=== PATIENT | male | born 1975 | race Caucasian/White ===

== ENCOUNTER 2017-03-01 19:21 | Emergency (ER) | payer OTHER ==
[2017-03-01] MEDS ORDERED: NS 0.9% 1000 ML* 2,000 ML IV ONE (23:27)
[2017-03-02 00:02] LABS: Hematocrit 44 % (42-52); Hemoglobin 15.8 g/dl (14.0-18.0); Mean Corpuscular HGB Conc 36 g/dl (31-36); Mean Corpuscular Hemoglobin 34 pg (27-31); Mean Corpuscular Volume 96 fL (80-94); Mean Platelet Volume 8 um3 (7.4-10.4); Red Blood Count 4.61 10^6/ul (4.0-5.4); Red Cell Distribution Width 13 % (10.5-15); White Blood Count 10.9 10^3/ul (3.5-10.8)
--- NOTE | 2017-03-02 00:04 | ED ---
Skin Complaint - HPI Summary HPI Summary: 42 male presents to ED with complaints of redness, swelling, warmth and pain to left inner leg that appeared on Monday and has been worsening/spreading since. Patient has not taken any medications. States he felt a lump. Denies fever/ chills. Admits to pain, aching. No nausea/vomiting, chest pain or difficulty breathing. No risk factors for DVT, other than use of cigars. no recent travel, surgery, injury/trauma or prolonged bed rest. PMHx included DM type II. No other medical history. No other complaints at this time. Able to bear weight and walk. Denies numbness/tingling and drainage. Patient currently only takes metformin for his diabetes. NO MRSA histor. - History of Current Complaint Chief Complaint: EDExtremityLower Time Seen by Provider: 03/01/17 21:38 Stated Complaint: BUMP ON LT LEG Hx Obtained From: Patient Onset/Duration: Started Days Ago, Still Present, Worse Since Skin Exposure Onset/Duration: Days Ago Timing: Constant Onset Severity: Moderate Current Severity: Moderate Pain Intensity: 5 Pain Scale Used: 0-10 Numeric Skin Location: Leg - left inner thigh/knee Character: Swelling, Pain, Redness Aggravating Symptom(s): Nothing Alleviating Symptom(s): Nothing Associated Signs & Symptoms: Rash Related History: Diabetes - Allergy/Home Medications Allergies/Adverse Reactions: Allergies Allergy/AdvReac Type Severity Reaction Status Date / Time No Known Allergies Allergy Verified 05/20/14 06:18 PMH/Surg Hx/FS Hx/Imm Hx Endocrine/Hematology History: Denies: Hx Diabetes Cardiovascular History: Denies: Hx Hypertension, Hx Pacemaker/ICD Respiratory History: Reports: Other Respiratory Problems/Disorders - INSPIRATORY WHEEZE UPPER RIGHT LOBE History: Denies: Hx Renal Disease Musculoskeletal History: Reports: Other Musculoskeletal History - LEFT KNEE ACL RECONSTRUCTION Sensory History: Reports: Hx Contacts or Glasses - GLASSES Denies: Hx Hearing Aid Opthamlomology History: Reports: Hx Contacts or Glasses - GLASSES Psychiatric History: Denies: Hx Panic Disorder - Surgical History Surgery Procedure, Year, and Place: left knee ~5 YEARS AGO ACL REPAIR Hx Anesthesia Reactions: No - Immunization History Immunizations Up to Date: Yes Infectious Disease History: No Infectious Disease History: Denies: Traveled Outside the [place] in Last 30 Days - Family History Known Family History: Positive: None - Social History Alcohol Use: Daily Alcohol Amount: ONE BEER DAILY Substance Use Type: Reports: None Smoking Status (MU): Former Smoker Amount Used/How Often: 1/2 PPD Length of Time of Smoking/Using Tobacco: 18 YEARS Have You Smoked in the Last Year: Yes Review of Systems Constitutional: Negative Cardiovascular: Negative Respiratory: Negative Genitourinary: Negative Musculoskeletal: Negative Positive: Rash - pain, red and warmth of left lower leg, inner thigh Neurological: Negative All Other Systems Reviewed And Are Negative: Yes Physical Exam Triage Information Reviewed: Yes Vital Signs On Initial Exam: Initial Vitals Temp Pulse Resp BP Pulse Ox 98.3 F 82 20 146/92 99 03/01/17 19:38 03/01/17 19:38 03/01/17 19:38 03/01/17 19:38 03/01/17 19:38 Vital Signs Reviewed: Yes Appearance: Positive: Well-Appearing, No Pain Distress, Well-Nourished Skin: Positive: Warm, Skin Color Reflects Adequate Perfusion, Dry, Erythema @ - non blanchable resmebling cellulitis or DVT of left inner thigh/knee warm to touch, not raised, no abscess appreciated. firm to touch, no discharge. no streaking.. Negative: Cold, Cyanosis @, Mass @ Head/Face: Positive: Normal Head/Face Inspection Eyes: Positive: Conjunctiva Clear ENT: Positive: Hearing grossly normal Neck: Positive: Supple, Nontender, No Lymphadenopathy Respiratory/Lung Sounds: Positive: Clear to Auscultation, Breath Sounds Present. Negative: Rales, Rhonchi, Wheezes Cardiovascular: Positive: Normal, RRR, Pulses are Symmetrical in both Upper and Lower Extremities - 2+ pedal. Negative: Murmur, Rub Abdomen Description: Positive: Nontender, Soft Bowel Sounds: Positive: Present Musculoskeletal: Positive: Normal, Strength/ROM Intact, Pain @ - on palpation of rash left LE Neurological: Positive: Normal, Sensory/Motor Intact - sensation intact and normal, Alert, Oriented to Person Place, Time, NV Bundle Intact Distally, Normal Gait Psychiatric: Positive: Affect/Mood Appropriate - [place] Coma Scale Coma Scale Total: 15 Diagnostics - Vital Signs Vital Signs Temp Pulse Resp BP Pulse Ox 03/01/17 23:50 69 18 122/63 99 03/01/17 21:26 98.0 F 77 18 121/77 97 03/01/17 19:38 98.3 F 82 20 146/92 99 - Laboratory Result Diagrams: 03/01/17 23:53 03/01/17 23:53 Lab Statement: Any lab studies that have been ordered have been reviewed, and results considered in the medical decision making process. - Ultrasound No standard instances Ultrasound Interpretation: Positive (See Comments) - occlusive thrombus in the left greater saphenous vein Ultrasound Interpretation Completed By: Radiologist Re-Evaluation - Re-Evaluation First Eval Re-Evaluation Time: 00:46 Change: Unchanged - doing ok, updated on imaging results and educated on treatment Course/Dx - Course Course Of Treatment: basic labs and both venous/soft tissue ultrasound obtained. given normal saline. appears to be suffering from occlusive thrombus of greater saphenous vein per US results. Spoke with imaging pony rougher about results at12:37am. patient does have type II no history of MRSA. Will be given xarelto. no contraindications. Educated on side effects and contraindications of xarelto. educated and aware of worsening signs and symptoms to watch out for such as PE, to seek medical attention promptly. follow up with pcp. - Differential Diagnoses - Skin Complaint Differential Diagnoses: Cellulitis, Contact Dermatitis, MRSA, Urticaria, Other - DVT - Diagnoses Provider Diagnoses: Thrombosis of left saphenous vein Discharge - Discharge Plan Condition: Stable Disposition: HOME Patient Education Materials: Deep Venous Thrombosis (ED), Rivaroxaban (By mouth ), Safe Use of Anticoagulants (ED), Blood Thinners (ED) Referrals: Shira Luis, JEAN PIERRE [Primary Care Provider] - Additional Instructions: Take prescribed medication as directed. Do not take NSAIDs, (ibuprofen/Advil, Meloxicam or Aleve) while taking this medication. You may bleed and bruise much easier. Follow up with PCP. If you develop worsening signs and symptoms as we discussed such as chest pain or difficulty breathing please seek medical attention immediately. Ambulate and avoid prolonged bed rest.
[2017-03-02 00:18] LABS: Albumin 3.8 g/dL (3.2-5.2); BUN/Creatinine Ratio 12.6 (8-20); Calcium 9.4 mg/dL (8.6-10.3); EGFR African American 111.3 (>60); EGFR Non-African American 86.5 (>60); Potassium 4.6 mmol/L (3.5-5.0); Total Bilirubin 0.9 mg/dL (0.2-1.0); Total Protein 6.8 g/dL (6.4-8.9)
[2017-03-02] MEDS ORDERED: Ketorolac INJ* 30 MG/ML 1 ML VIAL IV PUSH ONE (00:27)
[2017-03-02] MEDS ORDERED: Rivaroxaban TAB(*) 15 MG PO ONE (00:44)
[2017-03-02 01:03] VITALS: BP 128/68
--- NOTE | 2017-03-02 07:36 | RAD ---
INDICATION: Left lower extremity swelling. COMPARISON: There are no prior studies available for comparison. TECHNIQUE: Multiple real-time, color flow and Doppler tracings of the left lower extremity were obtained. FINDINGS: The common femoral, femoral, profunda femoral and popliteal veins all demonstrate normal compressibility, augmentation with compression and phasic response with respiration. The posterior tibial and peroneal veins demonstrate normal compressibility and augmentation with compression. There is occlusive thrombus in the greater saphenous vein from the mid thigh through the proximal to mid calf. IMPRESSION: OCCLUSIVE SUPERFICIAL VENOUS THROMBUS WITHIN THE LEFT GREATER SAPHENOUS VEIN.
== END 2017-03-02 01:05 | disposition home or self-care (01) ==
LOC: ED 19:21
DX: I82.812 Embolism and thrombosis of superficial veins of left lower extremity (principal); E11.9 Type 2 diabetes mellitus without complications; Z87.891 Personal history of nicotine dependence
CPT/HCPCS: 36415; 80053; 85025; 96374; 99283

== ENCOUNTER 2018-02-21 02:48 | Emergency (ER) | payer OTHER ==
[2018-02-21] MEDS ORDERED: Ketorolac INJ* 60 MG/2 ML VIAL IM ONE (03:00)
--- NOTE | 2018-02-21 03:03 | ED ---
Throat Pain/Nasal Congestion - HPI Summary HPI Summary: This patient is a 43 year old M presenting to [facility] with a chief complaint of a broken right bottom tooth since earlier today. The patient rates the pain 8/10 in severity. - History of Current Complaint Chief Complaint: EDDentalPain Time Seen by Provider: 02/21/18 02:52 Hx Obtained From: Patient Onset/Duration: Sudden Onset - At work earlier today, Still Present Severity: Severe - Allergies/Home Medications Allergies/Adverse Reactions: Allergies Allergy/AdvReac Type Severity Reaction Status Date / Time No Known Allergies Allergy Verified 02/21/18 02:49 Home Medications: Home Medications Aspirin 81 mg PO DAILY 02/21/18 [History Confirmed 02/21/18] Metformin HCl 500 mg PO BID 02/21/18 [History Confirmed 02/21/18] Pravastatin (NF) [Pravachol (NF)] 10 mg PO DAILY 02/21/18 [History Confirmed ] PMH/Surg Hx/FS Hx/Imm Hx Endocrine/Hematology History: Denies: Hx Diabetes Cardiovascular History: Denies: Hx Hypertension, Hx Pacemaker/ICD Respiratory History: Reports: Other Respiratory Problems/Disorders - INSPIRATORY WHEEZE UPPER RIGHT LOBE History: Denies: Hx Renal Disease Musculoskeletal History: Reports: Other Musculoskeletal History - LEFT KNEE ACL RECONSTRUCTION Sensory History: Reports: Hx Contacts or Glasses - GLASSES Denies: Hx Hearing Aid Opthamlomology History: Reports: Hx Contacts or Glasses - GLASSES Psychiatric History: Denies: Hx Panic Disorder - Surgical History Surgery Procedure, Year, and Place: left knee ~5 YEARS AGO ACL REPAIR Hx Anesthesia Reactions: No Infectious Disease History: No Infectious Disease History: Denies: Traveled Outside the [place] in Last 30 Days - Family History Known Family History: Positive: Hypertension, Other - Cancer - Social History Occupation: Employed Full-time - [employer] Alcohol Use: Daily Alcohol Amount: ONE BEER DAILY Substance Use Type: Reports: None Smoking Status (MU): Former Smoker Amount Used/How Often: 1/2 PPD Length of Time of Smoking/Using Tobacco: 18 YEARS Have You Smoked in the Last Year: Yes Review of Systems Negative: Fever Positive: Dental Pain - R bottom tooth All Other Systems Reviewed And Are Negative: Yes Physical Exam - Summary Physical Exam Summary: VITAL SIGNS: Reviewed. GENERAL: Patient is a well-developed and nourished MALE who is lying comfortable in the stretcher. Patient is not in any acute respiratory distress. HEAD AND FACE: No signs of trauma. No ecchymosis, hematomas or skull depressions. No sinus tenderness. EYES: PERRLA, EOMI x 2, No injected conjunctiva, no nystagmus. EARS: Hearing grossly intact. Ear canals and tympanic membranes are within normal limits. MOUTH: Oropharynx within normal limits. NECK: Supple, trachea is midline, no adenopathy, no JVD, no carotid bruit, no c- spine tenderness, neck with full ROM. CHEST: Symmetric, no tenderness at palpation LUNGS: Clear to auscultation bilaterally. No wheezing or crackles. CVS: Regular rate and rhythm, S1 and S2 present, no murmurs or gallops appreciated. ABDOMEN: Soft, non-tender. No signs of distention. No rebound no guarding, and no masses palpated. Bowel sounds are normal. EXTREMITIES: FROM in all major joints, no edema, no cyanosis or clubbing. NEURO: Alert and oriented x 3. No acute neurological deficits. Speech is normal and follows commands. SKIN: Dry and warm Triage Information Reviewed: Yes Vital Signs On Initial Exam: Initial Vitals Temp Pulse Resp BP Pulse Ox 97.9 F 86 20 169/98 96 02/21/18 02:49 02/21/18 02:49 02/21/18 02:49 02/21/18 02:49 02/21/18 02:49 Vital Signs Reviewed: Yes Diagnostics - Vital Signs Vital Signs Temp Pulse Resp BP Pulse Ox 02/21/18 02:49 97.9 F 86 20 169/98 96 - Laboratory Lab Statement: Any lab studies that have been ordered have been reviewed, and results considered in the medical decision making process. EENT Course/Dx - Course Assessment/Plan: This patient is a 43 year old M presenting to [facility] with a chief complaint of a broken right bottom tooth since earlier today. Physical exam was normal. Patient will be discharged home with painkillers and instructed to follow up with a dentist tomorrow morning. - Diagnoses Provider Diagnoses: Toothache Discharge - Sign-Out/Discharge Documenting (check all that apply): Patient Departure - D/C - Discharge Plan Condition: Stable Disposition: HOME Patient Education Materials: Toothache (ED) Referrals: Shira Luis NP [Primary Care Provider] - 1 Day Additional Instructions: RETURN TO THE EMERGENCY DEPARTMENT FOR CHANGING OR WORSENING SYMPTOMS. FOLLOW UP WITH PCP IN 1-2 DAYS. - Attestation Statements Document Initiated by Scribe: Yes Documenting Scribe: José Miguel Maki Provider For Whom Scribe is Documenting (Include Credential): Dmitri Byers MD Scribe Attestation: José Miguel Georges, scribed for Dmitri Byers MD on 02/21/18 at 0307.
[2018-02-21 03:45] VITALS: BP 169/95
== END 2018-02-21 03:44 | disposition home or self-care (01) ==
LOC: ED 02:48
DX: K08.89 Other specified disorders of teeth and supporting structures (principal); K03.81 Cracked tooth; Z79.82 Long term (current) use of aspirin; Z87.891 Personal history of nicotine dependence
CPT/HCPCS: 96372; 99282; J1885

== ENCOUNTER 2019-01-08 17:36 | Emergency (ER) | payer OTHER ==
[2019-01-08 17:44] VITALS: BP 156/98
--- NOTE | 2019-01-08 17:47 | UC ---
Throat Pain/Nasal Dewayne HPI - HPI Summary HPI Summary: 43 yo male presents with sore throat since last night. He tells me that last night he developed a sore throat that has worsened in pain today and he has a mild headache. Hurts to swallow, but he is able to eat, drink, and tolerate po well. He has not taken anything OTC for his symptoms. Denies fever, chills, sinus symptoms, cough, rash, abdominal pain, n/v. - History of Current Complaint Chief Complaint: UCRespiratory Stated Complaint: SORE THROAT Time Seen by Provider: 01/08/19 17:46 Hx Obtained From: Patient Onset/Duration: Gradual Onset Severity: Moderate Pain Intensity: 6 Pain Scale Used: 0-10 Numeric - Allergies/Home Medications Allergies/Adverse Reactions: Allergies Allergy/AdvReac Type Severity Reaction Status Date / Time No Known Allergies Allergy Verified 01/08/19 17:44 Home Medications: Home Medications Acetaminophen [Eq 8Hr Arthritis Pain Rel] 650 mg PO PRN 01/08/19 [History] PMH/Surg Hx/FS Hx/Imm Hx Endocrine History: Diabetes, Dyslipidemia - Surgical History Surgical History: Yes Surgery Procedure, Year, and Place: left knee ~5 YEARS AGO ACL REPAIR, SPINAL SURGERY L4/L5 DISC RUPTURE - Family History Known Family History: Positive: Hypertension, Other - Cancer - Social History Lives: With Family Alcohol Use: None Alcohol Amount: ONE BEER DAILY Substance Use Type: None Smoking Status (MU): Current Every Day Smoker Type: Cigars Amount Used/How Often: 5-6 CIGARS/DAY Length of Time of Smoking/Using Tobacco: 18 YEARS Have You Smoked in the Last Year: Yes - Immunization History Most Recent Influenza Vaccination: none Most Recent Tetanus Shot: unkown Most Recent Pneumonia Vaccination: none Review of Systems All Other Systems Reviewed And Are Negative: Yes Constitutional: Positive: Negative Skin: Positive: Negative Eyes: Positive: Negative ENT: Positive: Sore Throat Respiratory: Positive: Negative Cardiovascular: Positive: Negative Gastrointestinal: Positive: Negative Neurovascular: Positive: Negative Neurological: Positive: Negative Psychological: Positive: Negative Physical Exam - Summary Physical Exam Summary: GENERAL: NAD. WDWN. No pain distress. SKIN: No rashes, sores, lesions, or open wounds. HEENT: Head: AT/NC Eyes: EOM intact. Conjunctiva clear without inflammation or discharge. Ears: Hearing grossly normal. TMs intact, no bulging, erythema, or edema. Nose: Nasal mucosa pink and moist. NTTP maxillary and frontal sinus. Throat: Posterior oropharynx mild erythema. No exudates or tonsillar enlargement. Uvula midline. NECK: Supple. Mild TTP tonsillar LAD CHEST: CTAB. No r/r/w. No accessory muscle use. Breathing comfortably and in no distress. CV: RRR. Without m/r/g. Pulses intact. Cap refill <2seconds NEURO: Alert. PSYCH: Age appropriate behavior. Triage Information Reviewed: Yes Vital Signs: Initial Vital Signs Temp 100.4 F 01/08/19 17:41 Pulse 95 01/08/19 17:41 Resp 16 01/08/19 17:41 BP 156/98 01/08/19 17:41 Pulse Ox 99 01/08/19 17:41 Laboratory Tests 01/08/19 17:49 Group A Strep Rapid Negative Vital Signs Reviewed: Yes Throat Pain/Nasal Course/Dx - Course Course Of Treatment: POC strep negative. Given his fever and diabetes - will treat with antibiotics at this time for pharyngitis. - Differential Dx/Diagnosis Provider Diagnosis: Pharyngitis Discharge - Sign-Out/Discharge Documenting (check all that apply): Patient Departure All imaging exams completed and their final reports reviewed: No Studies - Discharge Plan Condition: Stable Disposition: HOME Prescriptions: Amoxicillin/Clavulanate TAB* [Augmentin TAB 875*] 875 mg PO BID #14 tab Patient Education Materials: Pharyngitis (ED) Referrals: Chano Jackson MD [Primary Care Provider] - Additional Instructions: If you develop a fever, shortness of breath, chest pain, new or worsening symptoms - please call your PCP or go to the ED immediately. Your blood pressure was high at todays visit. Please see your primary provider within 4 weeks for recheck and re-evaluation. Please take tylenol or ibuprofen as directed to reduce your pain and fever - Billing Disposition and Condition Condition: STABLE Disposition: Home
[2019-01-08] MEDS ORDERED: Amoxicillin/Clavulanate TAB* 875 MG PO ONE (18:05)
[2019-01-08] MEDS ORDERED: Ibuprofen TAB* 400 MG PO ONE (18:05)
== END 2019-01-08 18:25 | disposition home or self-care (01) ==
LOC: UCEAST 17:36
DX: J02.9 Acute pharyngitis, unspecified (principal); E11.9 Type 2 diabetes mellitus without complications; E78.5 Hyperlipidemia, unspecified; F17.210 Nicotine dependence, cigarettes, uncomplicated
CPT/HCPCS: 87651; 99212; A9270-GY; G0463